=== PATIENT | male | born 1950 | race Caucasian/White ===

== ENCOUNTER 2017-05-06 10:58 | Inpatient (IN) | payer OTHER ==
[~2017-05-06] VITALS: Ht 170.2 cm; Wt 95.6 kg
[~2017-05-06 10:58] MED LIST: CENTRUM SILVER1 EAC1 PO; LO-DOSE ASPIRIN81 M2 PO; PERCOCET 5/31 TABLET PO; PROTONIX40 MG PO
[2017-05-06 11:55] LABS: HEMATOCRIT 44.9 % (38.0-50.0); HEMOGLOBIN 15.4 G/DL (12.5-16.6); MCH 31.4 PG (29.0-34.0); MCHC 34.3 G/DL (30.0-36.0); MCV 91.4 FL (86-99); PLATELET COUNT 220 K/uL (156-360); RBC DIS.WIDTH-CV 13.8 % (11.8-14.6); RBC DIS.WIDTH-SD 46.7 % (39-53); RED BLOOD COUNT 4.91 M/uL (4.00-5.50); WHITE BLOOD COUNT 15.4 K/uL (4.1-10.2)
[2017-05-06 12:01] LABS: ALBUMIN 4.1 g/dL (3.2-4.8); CHLORIDE 102 mEq/L (99-109); POTASSIUM 3.9 mEq/L (3.7-5.4); SODIUM 137 mEq/L (136-147)
[2017-05-06 12:04] LABS: GLUCOSE 124 mg/dL (70-99); TOTAL PROTEIN 6.5 g/dL (6.4-8.3)
[2017-05-06 12:06] LABS: TOTAL BILIRUBIN 1.1 mg/dL (0.0-1.0)
[2017-05-06 12:07] LABS: ALKALINE PHOSPHATASE 71 IU/L (3-129); CREATININE 1.2 mg/dL (0.6-1.3); GFR ESTIMATE (CALCULATED) > 59 mL/min/ (58.99-99999)
[2017-05-06 12:08] LABS: UREA NITROGEN (BUN) 29 mg/dL (9-23)
[2017-05-06 12:09] LABS: AST (GOT) 25 IU/L (2-34)
[2017-05-06 12:10] LABS: ALT (GPT) 25 IU/L (3-49)
[2017-05-06 12:11] LABS: LIPASE 7 U/L (1.0-51.0)
[2017-05-06 12:12] LABS: TROP-I INTERPRETATION NEGATIVE; TROPONIN-I < 0.01 ng/mL (0.0-0.30)
[2017-05-06 13:03] LABS: APPEARANCE CLEAR ((CLEAR)); BILIRUBIN NEGATIVE; BLOOD NEGATIVE; COLOR AMBER ((YELLOW)); GLUCOSE (STRIP) NEGATIVE; KETONES NEGATIVE; LEUKOCYTES NEGATIVE; NITRITE NEGATIVE; PROTEIN (STRIP) 30; SPECIFIC GRAVITY 1.029 (1.000-1.030); UCUL ADDED? NO
[2017-05-06] MEDS ORDERED: PANTOPRAZOLE SO40 MG PO (15:43)
[2017-05-06] MEDS ORDERED: LO-DOSE ASPIRIN81 M2 PO (15:44)
[2017-05-06] MEDS ORDERED: ONCE DAILY1 EACH PO (15:45)
[2017-05-06 17:09] VITALS: BP 128/70
[2017-05-06 20:07] VITALS: BP 95/56
[2017-05-07] VITALS (7 sets, daily range): BP systolic 94–128; BP diastolic 52–68
[2017-05-07 06:47] LABS: HEMATOCRIT 41.5 % (38.0-50.0); HEMOGLOBIN 13.7 G/DL (12.5-16.6); MCH 31.3 PG (29.0-34.0); MCV 94.7 FL (86-99); PLATELET COUNT 184 K/uL (156-360); RBC DIS.WIDTH-CV 14.4 % (11.8-14.6); RBC DIS.WIDTH-SD 50.4 % (39-53); RED BLOOD COUNT 4.38 M/uL (4.00-5.50)
[2017-05-07 07:10] LABS: CHLORIDE 108 MEQ/L (99-109); CREATININE 1.2 MG/DL (0.6-1.3); GFR ESTIMATE (CALCULATED) > 59 mL/min/ (58.99-99999); GLUCOSE 107 mg/dL (70-99); SODIUM 142 MEQ/L (136-147); UREA NITROGEN (BUN) 29 mg/dL (9-23)
[2017-05-07 07:14] LABS: POTASSIUM 4.7 MEQ/L (3.7-5.4)
[2017-05-08 05:08] VITALS: BP 107/64
[2017-05-08 05:46] LABS: BASOPHIL (%) 0.6 % (0-1); BASOPHIL COUNT 0.1 K/uL (0-0.1); EOSINOPHIL (%) 3.5 % (0-5); EOSINOPHIL COUNT 0.3 K/uL (0-0.3); HEMATOCRIT 41.4 % (38.0-50.0); HEMOGLOBIN 13.8 G/DL (12.5-16.6); IMMATURE GRANULOCYTE (%) 0.4 % (0.0-0.7); LYMPHOCYTE (%) 6.8 % (15-42); LYMPHOCYTE COUNT 0.6 K/uL (1.0-2.8); MCH 31.6 PG (29.0-34.0); MCHC 33.3 G/DL (30.0-36.0); MCV 94.7 FL (86-99); MONOCYTE (%) 7.4 % (3-12); MONOCYTE COUNT 0.6 K/uL (0-0.8); NEUTROPHIL (%) 81.3 % (45-76); NEUTROPHIL COUNT 6.7 K/uL (1.8-6.4); RBC DIS.WIDTH-CV 14.1 % (11.8-14.6); RBC DIS.WIDTH-SD 49.6 % (39-53); RED BLOOD COUNT 4.37 M/uL (4.00-5.50); WHITE BLOOD COUNT 8.2 K/uL (4.1-10.2)
[2017-05-08 06:10] LABS: PLAT.SUFFICIENCY ADEQUATE; PLATELET COUNT 162 K/uL (156-360)
[2017-05-08 06:14] LABS: CHLORIDE 107 MEQ/L (99-109); GFR ESTIMATE (CALCULATED) > 59 mL/min/ (58.99-99999); GLUCOSE 119 mg/dL (70-99); POTASSIUM 4.6 MEQ/L (3.7-5.4); SODIUM 138 MEQ/L (136-147); UREA NITROGEN (BUN) 19 mg/dL (9-23)
[2017-05-08 08:01] VITALS: BP 97/56
[2017-05-08 12:22] VITALS: BP 115/66
[2017-05-08 15:20] VITALS: BP 134/71
[2017-05-08 19:40] VITALS: BP 113/64
[2017-05-08 23:28] VITALS: BP 117/67
[2017-05-09 03:47] VITALS: BP 118/56
[2017-05-09 06:25] LABS: BASOPHIL (%) 0.7 % (0-1); BASOPHIL COUNT 0.1 K/uL (0-0.1); EOSINOPHIL (%) 4.2 % (0-5); EOSINOPHIL COUNT 0.3 K/uL (0-0.3); HEMATOCRIT 39.1 % (38.0-50.0); HEMOGLOBIN 13.2 G/DL (12.5-16.6); IMMATURE GRANULOCYTE (%) 0.7 % (0.0-0.7); LYMPHOCYTE (%) 7.4 % (15-42); LYMPHOCYTE COUNT 0.5 K/uL (1.0-2.8); MCH 31.7 PG (29.0-34.0); MCHC 33.8 G/DL (30.0-36.0); MONOCYTE (%) 8.5 % (3-12); MONOCYTE COUNT 0.6 K/uL (0-0.8); NEUTROPHIL (%) 78.5 % (45-76); NEUTROPHIL COUNT 5.7 K/uL (1.8-6.4); PLATELET COUNT 199 K/uL (156-360); RBC DIS.WIDTH-CV 13.9 % (11.8-14.6); RBC DIS.WIDTH-SD 47.7 % (39-53); RED BLOOD COUNT 4.16 M/uL (4.00-5.50); WHITE BLOOD COUNT 7.2 K/uL (4.1-10.2)
[2017-05-09 06:47] LABS: CHLORIDE 106 MEQ/L (99-109); GFR ESTIMATE (CALCULATED) > 59 mL/min/ (58.99-99999); GLUCOSE 111 mg/dL (70-99); POTASSIUM 4.3 MEQ/L (3.7-5.4); SODIUM 139 MEQ/L (136-147); UREA NITROGEN (BUN) 21 mg/dL (9-23)
[2017-05-09 08:43] VITALS: BP 144/80
[2017-05-09 11:33] VITALS: BP 132/71
[2017-05-09 16:31] VITALS: BP 139/71
[2017-05-09 19:53] VITALS: BP 132/71
[2017-05-10] VITALS: BP 130/71
[2017-05-10 04:04] VITALS: BP 164/88
[2017-05-10 08:21] VITALS: BP 148/70
[2017-05-10 09:29] LABS: HEMATOCRIT 44.8 % (38.0-50.0); HEMOGLOBIN 15.1 G/DL (12.5-16.6); MCH 30.6 PG (29.0-34.0); MCHC 33.7 G/DL (30.0-36.0); MCV 90.7 FL (86-99); RBC DIS.WIDTH-CV 13.3 % (11.8-14.6); RBC DIS.WIDTH-SD 44.2 % (39-53); RED BLOOD COUNT 4.94 M/uL (4.00-5.50); WHITE BLOOD COUNT 10.2 K/uL (4.1-10.2)
[2017-05-10 09:42] LABS: PLATELET COUNT 270 K/uL (156-360)
[2017-05-10 09:57] LABS: CHLORIDE 102 MEQ/L (99-109); CREATININE 1.1 MG/DL (0.6-1.3); GFR ESTIMATE (CALCULATED) > 59 mL/min/ (58.99-99999); GLUCOSE 118 mg/dL (70-99); POTASSIUM 4.2 MEQ/L (3.7-5.4); SODIUM 137 MEQ/L (136-147); UREA NITROGEN (BUN) 13 mg/dL (9-23)
[2017-05-10 12:00] VITALS: BP 129/67
[2017-05-10 15:24] VITALS: BP 124/72
[2017-05-10 19:40] VITALS: BP 121/65
[2017-05-11 00:32] VITALS: BP 111/66
[2017-05-11 04:29] VITALS: BP 135/72
[2017-05-11 08:11] VITALS: BP 122/69
[2017-05-11 12:18] VITALS: BP 140/77
[2017-05-11 15:29] VITALS: BP 119/71
[2017-05-11 20:30] VITALS: BP 135/73
[2017-05-12 00:21] VITALS: BP 137/66
[2017-05-12 08:26] VITALS: BP 122/68
[2017-05-12 16:39] VITALS: BP 144/73
[2017-05-12 23:43] VITALS: BP 132/69
[2017-05-13 08:25] VITALS: BP 123/69
[2017-05-13] MEDS ORDERED: PERCOCET 5/31 TABLET PO (10:03)
[2017-05-13] MEDS ORDERED: COLACE100 MG PO (10:03)
== END 2017-05-13 11:54 | disposition home or self-care (01) | DRG 346 ==
LOC: EME 10:58 → 3EAST 15:26 → EDOF 15:26 → ENRESERV 15:30 → 3EAST 16:53
PROVIDERS: Physician Assistant; Physician Assistant Medical; Physician Assistant Surgical; Surgery
PROC: 0DCA0ZZ Extirpation of Matter from Jejunum, Open Approach (ICD-10-PCS; principal; 2017-05-09)
DX: K56.3 Gallstone ileus (principal); K57.10 Diverticulosis of small intestine without perforation or abscess without bleeding; I10 Essential (primary) hypertension; K21.9 Gastro-esophageal reflux disease without esophagitis; E66.9 Obesity, unspecified; Z79.82 Long term (current) use of aspirin; Z85.46 Personal history of malignant neoplasm of prostate; Z88.1 Allergy status to other antibiotic agents; Z80.0 Family history of malignant neoplasm of digestive organs; Z90.79 Acquired absence of other genital organ(s); Z68.33 Body mass index [BMI] 33.0-33.9, adult; I25.2 Old myocardial infarction; Z86.010 Personal history of colon polyps
CPT/HCPCS: 71010; 74018; 74020; 74177; 80048; 80053; 81003; 83605; 83690; 84484; 85025; 85027; 88300; 93005; 99281; 99285; J0131; J1170; J1650; J1885; J2250; J2270; J3010; J7030; S0028; S0074

== ENCOUNTER 2017-05-14 12:07 | Emergency (ER) | payer OTHER ==
[~2017-05-14] VITALS: Ht 170.2 cm; Wt 94.5 kg
[~2017-05-14 12:07] MED LIST changes: +COLACE100 MG PO; +ONCE DAILY1 EACH PO; +PANTOPRAZOLE SO40 MG PO
[2017-05-14 13:58] LABS: HEMOGLOBIN 13.6 G/DL (12.5-16.6); MCH 31.5 PG (29.0-34.0); MCHC 34.9 G/DL (30.0-36.0); MCV 90.3 FL (86-99); PLATELET COUNT 325 K/uL (156-360); RBC DIS.WIDTH-CV 13.1 % (11.8-14.6); RBC DIS.WIDTH-SD 43.3 % (39-53); RED BLOOD COUNT 4.32 M/uL (4.00-5.50)
[2017-05-14 14:07] LABS: ALBUMIN 3.5 g/dL (3.2-4.8); CHLORIDE 100 mEq/L (99-109); POTASSIUM 4.6 mEq/L (3.7-5.4); SODIUM 136 mEq/L (136-147)
[2017-05-14 14:09] LABS: GLUCOSE 100 mg/dL (70-99)
[2017-05-14 14:11] LABS: TOTAL BILIRUBIN 0.6 mg/dL (0.0-1.0)
[2017-05-14 14:13] LABS: ALKALINE PHOSPHATASE 66 IU/L (3-129); GFR ESTIMATE (CALCULATED) > 59 mL/min/ (58.99-99999)
[2017-05-14 14:14] LABS: AST (GOT) 21 IU/L (2-34); UREA NITROGEN (BUN) 10 mg/dL (9-23)
[2017-05-14 14:16] LABS: ALT (GPT) 27 IU/L (3-49)
[2017-05-14 15:58] VITALS: BP 135/76
== END 2017-05-14 15:59 | disposition home or self-care (01) ==
LOC: EME 12:07
PROVIDERS: Nurse Practitioner Family
DX: Z48.01 Encounter for change or removal of surgical wound dressing (principal); Z98.890 Other specified postprocedural states; Z87.19 Personal history of other diseases of the digestive system; Z79.82 Long term (current) use of aspirin; Z85.46 Personal history of malignant neoplasm of prostate
CPT/HCPCS: 80053; 83605; 85027; 99281; 99283